=== PATIENT | female | born 1930 | race Caucasian/White ===

== ENCOUNTER 2018-05-31 15:56 | Emergency (ER) | payer OTHER ==
--- NOTE | 2018-05-31 16:14 | EDPHY ---
H & P Stated Complaint: mechanical fall Time Seen by Provider: 05/31/18 16:12 HPI/ROS: CHIEF COMPLAINT: Fall HISTORY OF PRESENT ILLNESS: Patient is an 87-year-old female who states that she tripped and fell. She has a small laceration to right temporal area as well as an abrasion to right knee. She has been ambulatory. She denies loss of consciousness. She denies headache or neck pain. She states that her glasses cut her forehead. The glass did not break. No vision changes. No blood thinners. Severity: Moderate Modifying factors: None REVIEW OF SYSTEMS: Constitutional: denies: chills, fever, recent illness, recent injury EENTM: denies: blurred vision, double vision, nose congestion Respiratory: denies: cough, shortness of breath Cardiac: denies: chest pain, irregular heart rate, lightheadedness, palpitations Gastrointestinal/Abdominal: denies: abdominal pain, diarrhea, nausea, vomiting, blood streaked stools Genitourinary: denies: dysuria, frequency, hematuria, pain Musculoskeletal: denies: joint pain, muscle pain Skin: See above Neurological: denies: headache, numbness, paresthesia, tingling, dizziness, weakness Hematologic/Lymphatic: denies: blood clots, easy bleeding, easy bruising Immunologic/allergic: denies: HIV/AIDS, transplant 10 systems reviewed and negative except as noted EXAM: GENERAL: Well-appearing, well-nourished and in no acute distress. HEAD: Small forehead laceration, see below, no large hematoma, no headache. Normal neck movement. EYES: Pupils equal round and reactive to light, extraocular movements intact, sclera anicteric, conjunctiva are normal. ENT: TMs normal, nares patent, oropharynx clear without exudates. Moist mucous membranes. NECK: Normal range of motion, supple without lymphadenopathy or JVD. LUNGS: Breath sounds clear to auscultation bilaterally and equal. No wheezes rales or rhonchi. HEART: Regular rate and rhythm without murmurs, rubs or gallops. ABDOMEN: Soft, nontender, normoactive bowel sounds. No guarding, no rebound. No masses appreciated. BACK: No CVA tenderness, no spinal tenderness, step-offs or deformities EXTREMITIES: Abrasion to right knee, Normal range of motion, no pitting or edema. No clubbing or cyanosis. NEUROLOGICAL: Cranial nerves II through XII grossly intact. Normal speech, normal gait. 5/5 strength, normal movement in all extremities, normal sensation , normal reflexes PSYCH: Normal mood, normal affect. SKIN: 2 cm laceration left advent area, shallow, no crepitus or deformity. Source: Patient, EMS Exam Limitations: No limitations - Personal History Current Tetanus/Diphtheria Vaccine: Unsure Current Tetanus Diphtheria and Acellular Pertussis (TDAP): Unsure - Medical/Surgical History Hx Asthma: No Hx Chronic Respiratory Disease: No Hx Diabetes: No Hx Cardiac Disease: Yes Hx Renal Disease: No Hx Cirrhosis: No Hx Alcoholism: No Hx HIV/AIDS: No Hx Splenectomy or Spleen Trauma: Yes Other PMH: htn, high cholesterol and "bladder issues". Surgical history- Jacque 1960,aortic valve repair 2007, Bladder suspension 2008, Splenectomy for cancer 2013, Chemo 2013 Constitutional: Initial Vital Signs Temperature (C) 36.4 C 05/31/18 16:04 Heart Rate 84 05/31/18 16:04 Respiratory Rate 16 05/31/18 16:04 Blood Pressure 159/101 H 05/31/18 16:04 O2 Sat (%) 92 05/31/18 16:04 O2 Delivery Mode Room Air Allergies/Adverse Reactions: heparin,beef Allergy (Verified 05/31/18 16:10) Home Medications: Medication Instructions Recorded Aspirin 81mg (*) 05/31/18 Metoprolol Tartrate 05/31/18 Pravastatin Sodium 05/31/18 Tolterodine Tartrate ER 05/31/18 Medical Decision Making Procedures: Procedure: Laceration repair. Verbal consent was obtained from the patient. The 2 cm left forehead laceration was anesthetized with 1% lidocaine with epi and bicarbonate locally infiltrated. The wound was irrigated copiously according to protocol, draped and explored to its base. It was approximately 1/2 cm deep. There were no deep structures involved. No tendon, nerve, or vascular injury was identified when explored. No foreign body was identified. The wound was repaired with 5.0 fast-absorbing gut, for sutures, interrupted. The wound repair was simple without wound margin revisement or multiple flap alignment. The procedure was performed by myself. A dressing was then placed with sterile gauze. ED Course/Re-evaluation: Patient is happy and cheerful. She is laughing. She denies headache or neck pain. She declines imaging studies. Will repair her wound and observe. Patient tolerated the wound repair well. She continues to feel well and declines imaging. She is able to walk a without difficulty. Will discharge at this time. Wounds have been cleaned and dressed. Discussed suture care for dissolvable stitches. Discussed indications for returning. Differential Diagnosis: Partial list of the Differential diagnosis considered include but were not limited to; forehead laceration, knee abrasion and although unlikely based on the history and physical exam, I also considered intracranial injury, neck injury, syncope, acute coronary disease. I discussed these differential diagnoses and the plan with the patient as well as the usual and expected course. The patient understands that the diagnosis is provisional and that in medicine we are not always correct and that further workup is often warranted. Usual and customary warnings were given. All of the patient's questions were answered. The patient was instructed to return to the emergency department should the symptoms at all worsen or return, otherwise to followup with the physician as we discussed. - Data Points Medications Given: Discontinued Medications Diphtheria/Tetanus/Acell Pertussis (Boostrix) 0.5 ml IM .ONCE ONE Stop: 05/31/18 17:02 Last Admin: 05/31/18 17:06 Dose: 0.5 ml Departure - Departure Disposition: Home, Routine, Self-Care Clinical Impression: Forehead laceration Qualifiers: Encounter type: initial encounter Qualified Code(s): S01.81XA - Laceration without foreign body of other part of head, initial encounter Abrasion of knee, left Qualifiers: Encounter type: initial encounter Qualified Code(s): S80.212A - Abrasion, left knee, initial encounter Condition: Good Instructions: Laceration (ED), Care For Your Absorbable Stitches (ED) Referrals: Patient,NotPresent [Unknown] - As per Instructions Tracey Traylor MD [Medical Doctor] - 3-4 days, if not improved
[2018-05-31] MEDS ORDERED: TDAP ADULT 0.5 ML INJ (BOOSTRIX) IM ONE (17:01)
[2018-05-31 17:17] VITALS: BP 145/95
== END 2018-05-31 17:10 | disposition home or self-care (01) ==
LOC: EDUNIT#
PROC: 0HQ1XZZ Repair Face Skin, External Approach (ICD-10-PCS; principal; 2018-05-31)
DX: S01.81XA Laceration without foreign body of other part of head, initial encounter (principal); S80.211A Abrasion, right knee, initial encounter; Z23 Encounter for immunization; W01.0XXA Fall on same level from slipping, tripping and stumbling without subsequent striking against object, initial encounter; Y92.9 Unspecified place or not applicable; Y99.9 Unspecified external cause status; Y93.9 Activity, unspecified

== ENCOUNTER → 2018-08-13 | Outpatient (CLI) | payer OTHER | DX: I25.10 Atherosclerotic heart disease of native coronary artery without angina pectoris (principal); Z95.2 Presence of prosthetic heart valve ==